=== PATIENT | female | born 1955 | race Caucasian/White ===

== ENCOUNTER 2016-05-09 06:23 | Emergency (ER) | payer OTHER ==
[~2016-05-09] VITALS: Ht 162.6 cm; Wt 42.7 kg
[~2016-05-09 06:23] MED LIST: AMOXICILLI250 MG/5 M PO; ANUSOL-HC21 GM PR; CIPRO500 MG PO; COLACE100 MG PO; KLOR-CON 1010 ME1 PO; MOBIC15 MG PO; MOTRIN600 MG PO; NOHOMEMEDS; TESSALON PERLE100 MG PO
[2016-05-09 07:10] LABS: EOSINOPHIL COUNT 0.1 K/uL (0-0.3); HEMATOCRIT 41.6 % (36.0-46.0); IMMATURE GRANULOCYTE (%) 0.3 % (0.0-0.7); IMMATURE GRANULOCYTE COUNT 0.2 K/uL; MCH 29.9 PG (29.0-34.0); MCHC 33.9 G/DL (30.0-36.0); MCV 88.3 FL (83-99); MEAN PLAT.VOLUME 9.5 uM^3 (9.5-12.4); MONOCYTE (%) 9.7 % (3-12); MONOCYTE COUNT 0.7 K/uL (0-0.8); NEUTROPHIL (%) 60.7 % (45-76); NEUTROPHIL COUNT 4.4 K/uL (1.8-6.4); PLATELET COUNT 254 K/uL (156-360); RBC DIS.WIDTH-CV 12.8 % (11.8-14.6); RBC DIS.WIDTH-SD 40.6 % (39-53); RED BLOOD COUNT 4.71 M/uL (3.80-5.20); WHITE BLOOD COUNT 7.2 K/uL (4.1-10.2)
[2016-05-09 07:35] LABS: ANION GAP 12 MEQ/L (2-14); CHLORIDE 104 MEQ/L (99-109); POTASSIUM 3.3 MEQ/L (3.7-5.4); SAMPLE HEMOLYSIS CHECK 0; SAMPLE ICTERIC CHECK 0; SAMPLE LIPEMIA CHECK 0; SODIUM 144 MEQ/L (136-147); TOTAL BILIRUBIN 0.7 MG/DL (0.0-1.0)
[2016-05-09 07:41] LABS: ALKALINE PHOSPHATASE 58 IU/L (3-129); GFR ESTIMATE (CALCULATED) > 59 mL/min/; GLUCOSE 94 mg/dL (70-99); LIPASE 37 U/L (1.0-51.0); UREA NITROGEN (BUN) 11 mg/dL (9-23)
[2016-05-09 07:56] LABS: ADD MIUA? YES; BILIRUBIN SMALL; BLOOD MODERATE; COLOR DK YELLOW ((YELLOW)); GLUCOSE (STRIP) NEGATIVE; KETONES TRACE; LEUKOCYTES MODERATE; NITRITE NEGATIVE; PROTEIN (STRIP) >=300; SPECIFIC GRAVITY 1.021 (1.000-1.030)
[2016-05-09 08:14] LABS: CASTS PRESENT /LPF; EPITHELIAL CELLS 2+; FINE GRANULAR CASTS 0-5 /LPF; HYALINE CASTS 0-5 /LPF; MUCUS 1+
[2016-05-09 08:15] LABS: BACTERIA RARE; CRYSTALS NONE SEEN; UCUL ADDED? NO; WHITE BLOOD CELLS 15-20 /HPF (0-5)
[2016-05-09] MEDS ORDERED: BENTYL20 MG PO (09:47)
[2016-05-09] MEDS ORDERED: BACTRIM,SEPT1 TABLET PO (09:47)
[2016-05-09 10:56] VITALS: BP 121/71
== END 2016-05-09 11:15 | disposition home or self-care (01) ==
LOC: EME → EDBD 06:23 → EME 06:23
PROVIDERS: Emergency Medicine
DX: N39.0 Urinary tract infection, site not specified (principal); E87.6 Hypokalemia; R10.9 Unspecified abdominal pain; E78.5 Hyperlipidemia, unspecified; F17.200 Nicotine dependence, unspecified, uncomplicated; Z88.1 Allergy status to other antibiotic agents; Z88.0 Allergy status to penicillin
CPT/HCPCS: 74020; 80053; 81003; 83605; 83630; 83690; 85025; 87086; 87493; 87506; 99281; 99284; J0696; J7030; J7050

== ENCOUNTER 2016-08-31 06:48 | Emergency (ER) | payer OTHER ==
[~2016-08-31] VITALS: Ht 162.6 cm; Wt 39.7 kg
[~2016-08-31 06:48] MED LIST changes: +BACTRIM,SEPT1 TABLET PO; +BENTYL20 MG PO
[2016-08-31 06:52] VITALS: BP 123/65
[2016-08-31] MEDS ORDERED: MYCOSTATIN 100,60 ML PO (07:37)
== END 2016-08-31 08:22 | disposition home or self-care (01) ==
LOC: EME → EDBD 06:48 → EME 08:22
DX: J06.9 Acute upper respiratory infection, unspecified (principal); B37.9 Candidiasis, unspecified
CPT/HCPCS: 99281; 99283

== ENCOUNTER 2017-09-14 02:48 | Emergency (ER) | payer OTHER ==
[~2017-09-14] VITALS: Ht 162.6 cm; Wt 42.2 kg
[~2017-09-14 02:48] MED LIST changes: +MYCOSTATIN 100,60 ML PO
[2017-09-14 03:21] LABS: HEMATOCRIT 41.3 % (36.0-46.0); HEMOGLOBIN 14.2 G/DL (11.9-15.5); MCH 30.9 PG (29.0-34.0); MCHC 34.4 G/DL (30.0-36.0); MCV 89.8 FL (83-99); PLATELET COUNT 247 K/uL (156-360); RBC DIS.WIDTH-CV 12.8 % (11.8-14.6); RBC DIS.WIDTH-SD 42.2 % (39-53); WHITE BLOOD COUNT 10.2 K/uL (4.1-10.2)
[2017-09-14 03:29] LABS: CHLORIDE 103 mEq/L (99-109); POTASSIUM 3.5 mEq/L (3.7-5.4); SODIUM 140 mEq/L (136-147)
[2017-09-14 03:32] LABS: GLUCOSE 102 mg/dL (70-99); TOTAL PROTEIN 6.5 g/dL (6.4-8.3)
[2017-09-14 03:33] LABS: TOTAL BILIRUBIN 0.6 mg/dL (0.0-1.0)
[2017-09-14 03:35] LABS: ALKALINE PHOSPHATASE 76 IU/L (3-129); CREATININE 0.9 mg/dL (0.6-1.3); GFR ESTIMATE (CALCULATED) > 59 mL/min/
[2017-09-14 03:36] LABS: UREA NITROGEN (BUN) 10 mg/dL (9-23)
[2017-09-14 03:37] LABS: AST (GOT) 16 IU/L (2-34)
[2017-09-14 03:38] LABS: ALT (GPT) 9 IU/L (3-49)
[2017-09-14 03:39] LABS: LIPASE 32 U/L (1.0-51.0)
[2017-09-14 03:39] LABS: APPEARANCE CLEAR ((CLEAR)); BILIRUBIN NEGATIVE; BLOOD MODERATE; COLOR YELLOW ((YELLOW)); GLUCOSE (STRIP) NEGATIVE; KETONES NEGATIVE; LEUKOCYTES MODERATE; NITRITE NEGATIVE; PROTEIN (STRIP) NEGATIVE; SPECIFIC GRAVITY 1.006 (1.000-1.030); UROBILINOGEN 0.2 MG/DL (0.2-1.0)
[2017-09-14 03:42] LABS: BACTERIA NONE SEEN /HPF; EPITHELIAL CELLS RARE /HPF; MUCUS TRACE /LPF; RED BLOOD CELLS 0-5 /HPF (0-5); UCUL ADDED? NO; WHITE BLOOD CELLS 0-5 /HPF (0-5)
[2017-09-14] MEDS ORDERED: MACROBID100 MG PO (05:18)
[2017-09-14 06:09] VITALS: BP 112/72
== END 2017-09-14 06:11 | disposition home or self-care (01) ==
LOC: EME 02:48
PROVIDERS: Emergency Medicine
DX: N39.0 Urinary tract infection, site not specified (principal); E78.5 Hyperlipidemia, unspecified; J45.909 Unspecified asthma, uncomplicated; F32.9 Major depressive disorder, single episode, unspecified; F17.200 Nicotine dependence, unspecified, uncomplicated; Z90.710 Acquired absence of both cervix and uterus; Z88.0 Allergy status to penicillin; Z88.1 Allergy status to other antibiotic agents
CPT/HCPCS: 74176; 80053; 81003; 83690; 85027; 99281; 99285; J3010; J7030